=== PATIENT | female | born 1995 | race Caucasian/White ===

== ENCOUNTER 2017-01-27 01:40 | Emergency (ER) | payer OTHER ==
[~2017-01-27] VITALS: Ht 167.6 cm; Wt 51.7 kg
[2017-01-27 01:45] VITALS: BP 140/75
--- NOTE | 2017-01-27 01:54 | NUR ---
PT TAKEN TO BED 4
--- NOTE | 2017-01-27 01:55 | NUR ---
Dr. Angeles evaluating patient at bedside.
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
[2017-01-27] MEDS ORDERED: IBUPROFEN 800 MG TAB PO ONE (02:00)
--- NOTE | 2017-01-27 02:20 | NUR ---
X-Ray at bedside.
[2017-01-27 03:10] VITALS: BP 135/72
--- NOTE | 2017-01-27 03:10 | NUR ---
Patient discharged with v/s stable. Written and verbal after care instructions given and explained. Patient alert, oriented and verbalized understanding of instructions. Ambulatory with steady gait. All questions addressed prior to discharge. ID band removed. Patient advised to follow up with PMD. Rx of MOTRIN 800 MG given. Patient educated on indication of medication including possible reaction and side effects. Opportunity to ask questions provided and answered.
== END 2017-01-27 03:10 | disposition home or self-care (01) ==
LOC: MED 01:53
DX: S93.402A Sprain of unspecified ligament of left ankle, initial encounter (principal); S46.912A Strain of unspecified muscle, fascia and tendon at shoulder and upper arm level, left arm, initial encounter; S20.212A Contusion of left front wall of thorax, initial encounter; J45.909 Unspecified asthma, uncomplicated; V09.9XXA Pedestrian injured in unspecified transport accident, initial encounter; Y93.89 Activity, other specified; Y92.89 Other specified places as the place of occurrence of the external cause; Y99.8 Other external cause status
CPT/HCPCS: 71010; 73030; 73610; 81002; 81025; 99284; Q0092

== ENCOUNTER 2017-09-05 14:17 | Emergency (ER) | payer OTHER ==
[~2017-09-05] VITALS: Ht 170.2 cm; Wt 53.1 kg
[2017-09-05 14:21] VITALS: BP 123/74
--- NOTE | 2017-09-05 14:24 | NUR ---
PATIENT TO ER BED 8
--- NOTE | 2017-09-05 14:27 | NUR ---
22Y/F BIB SELF C/O SORE THROAT X 2 DAYS 12/04 WITH PRODUCTIVE COUGH AND DIFFICULTY SWALLOWING. AAOX4 WITH EVEN AND STEADY GAIT; VSS; PATIENT POSITIONED FOR COMFORT; HOB ELEVATED; BEDRAILS UP X 1 ; BED DOWN. ER MD MADE AWARE OF PT STATUS.
--- NOTE | 2017-09-05 14:51 | NUR ---
STREPT CULTURE COLLECTED=-LAB NOTIFIED
[2017-09-05] MEDS ORDERED: IBUPROFEN 600 MG TAB PO ONE (15:00)
--- NOTE | 2017-09-05 15:11 | NUR ---
full clear speech, no drooling noted---admits to pain in throat 09/03, medicated as written also provided cool water to sooth throat0----smiling thankful for the care continues to wait for dispo---pending culture
[2017-09-05 15:50] VITALS: BP 118/74
--- NOTE | 2017-09-05 15:51 | NUR ---
Patient discharged with v/s stable. Written and verbal after care instructions given and explained. Patient alert, oriented and verbalized understanding of instructions. Ambulatory with steady gait. All questions addressed prior to discharge. ID band removed. Patient advised to follow up with PMD. Rx of PREDNISONE, TYLENOL given. Patient educated on indication of medication including possible reaction and side effects. Opportunity to ask questions provided and answered.
== END 2017-09-05 15:51 | disposition home or self-care (01) ==
LOC: MED 14:17
DX: J02.8 Acute pharyngitis due to other specified organisms (principal); R13.10 Dysphagia, unspecified; R05 Cough; F17.210 Nicotine dependence, cigarettes, uncomplicated; J45.909 Unspecified asthma, uncomplicated
CPT/HCPCS: 87081; 99284